=== PATIENT | female | born 1980 | race Caucasian/White ===

== ENCOUNTER 2021-11-10 05:36 | Outpatient (CLI) | payer BC ==
[~2021-11-10] VITALS: Ht 157 cm; Wt 91.0 kg
[2021-11-10] MEDS ORDERED: CITA40TA13 PO (12:07)
[2021-11-10] MEDS ORDERED: BIRTH CONTROL PILL (12:07)
== END 2021-11-10 12:47 | disposition home or self-care (01) ==
LOC: PREOP 05:36
PROVIDERS: ATTEND Otolaryngology Otolaryngology/Facial Plastic Surgery
DX: Z01.818 Encounter for other preprocedural examination (principal)

== ENCOUNTER 2021-11-17 08:56 | Day surgery (SDC) | payer BC ==
[2021-11-17] VITALS (12 sets, daily range): BP systolic 110–124; BP diastolic 63–89
[~2021-11-17] VITALS: Ht 157 cm; Wt 91.0 kg
[~2021-11-17 08:56] MED LIST: AMPICILLIN/SULBACTAM INJECTION 1.5 GM in NS (IVPB) 100 ML IV ONE; BIRTH CONTROL PILL; CITA40TA13 PO; HYDROCORTISONE 100 MG/2 ML (Solu-CORTEF) VIAL IV ONE; LACTATED RINGERS 1,000 ML IV PRN
--- OUTSIDE RECORDS SUMMARY | 2021-11-17 09:00 | XMS REPORT | Continuity of Care Document ---
Author Author [facility] Organization [facility] Address Unknown Phone Unavailable Care Team Providers Care Coil Rewind Machine Operator Name Role Phone Siddhartha Yung PCP Encounter 10/20/21 - 10/20/21 [facility] [address], [address] [place], [place] [address] Encounter Diagnosis Chronic sinus infection (Discharge Diagnosis) - 10/20/21 Discharge Disposition: Home or Self Care Attending Physician: Siddhartha Yung HOT MILL ROLLER Admitting Physician: Siddhartha Yung APRN Allergies, Adverse Reactions, Alerts No Known Medication Allergies Assessment and Plan Extracted from: Title: Office Visit Note Author: Siddhartha Yung APRN Date: 10/20/21 1.Chronic sinus infectionJ 32.9 Ordered: clindamycin, 1 cap(s), Oral, q8hr (interval), X 10 day(s), # 30 cap(s), 0 Refill(s), 10/30/21 11:06:00 TOXICS PROGRAM OFFICER, Pharmacy: [facility] fluconazole, 1 tab(s), Oral, Once, # 2 tab(s), 0 Refill(s), Pharmacy: [facility] pseudoephedrine, 1 tab(s), Oral, q12hr (interval), PRN for cold symptoms, X 10 day(s), # 20 tab(s), 0 Refill(s), 10/30/21 11:05:00 TOXICS PROGRAM OFFICER, Pharmacy: [facility] [id number] Office visit for the E/M of an established pt low or 20-29 min External Referral Referral Ambulatory Hold on to antibiotics and see if patient improves with adding sudafed to plan of care. Continue allergy med and flonase. as needed Future Appointments Appointment Date: 10/28/2021 09:45:00 AM Scheduled Provider: Bruno Luo MD Location: [facility] Appointment Type: [facility] ([facility]) Referrals to Other Providers Referred by: Siddhartha Yung HOT MILL ROLLER Functional Status 10/20/21 COVID-19 Screening None Immunizations No data available for this section Medications citalopram 40 mg oral tablet 1 tab(s), Oral, Daily, # 90 tab(s), 3 Refill(s), Pharmacy: [id number], [facility] Start Date: 04/23/21 Stop Date: 04/18/22 Status: Ordered clindamycin 300 mg oral capsule 1 cap(s), Oral, q8hr (interval), X 10 day(s), # 30 cap(s), 0 Refill(s), 10/30/21 11:06:00 TOXICS PROGRAM OFFICER, [facility]: [facility] Start Date: 10/20/21 Stop Date: 10/30/21 Status: Ordered Diflucan 150 mg oral tablet 1 tab(s), Oral, Once, # 2 tab(s), 0 Refill(s), [facility]acy: [facility] Start Date: 10/20/21 Status: Ordered Low-Ogestrel 0.3 mg-30 mcg oral tablet 0 Refill(s) Start Date: 04/23/21 Status: Ordered phentermine 37.5 mg oral tablet 1 tab(s), Oral, Daily, X 30 day(s), # 30 tab(s), 0 Refill(s), 10/21/21 15:46:00 TOXICS PROGRAM OFFICER, [facility]: [facility] Start Date: 09/21/21 Stop Date: 10/21/21 Status: Ordered predniSONE 20 mg oral tablet See Instructions, 4 tabs today, then 2 tabs daily x 6 days, # 16 tab(s), 0 Refil l(s), 10/21/21 12:00:00 TOXICS PROGRAM OFFICER, [facility]acy: [facility] Start Date: 09/21/21 Stop Date: 10/21/21 Status: Ordered Sudafed 12-Hour 120 mg oral tablet, extended release 1 tab(s), Oral, q12hr (interval), PRN for cold symptoms, X 10 day(s), # 20 tab(s ), 0 Refill(s), 10/30/21 11:05:00 TOXICS PROGRAM OFFICER, [facility]acy: [facility] Start Date: 10/20/21 Stop Date: 10/30/21 Status: Ordered Mental Status No data available for this section Problem List Condition Effective Dates Status Health Status Informan t Hormone replacement Active therapy(Confirmed) Gastro-esophageal Active reflux(Confirmed) Depression with Active anxiety(Confirmed) Obesity(Confirmed) Active Procedures No data available for this section Results No data available for this section Vital Signs Most recent to 1 oldest [Reference Range]: Temperature Temporal 36.7 DegC Artery [36.3-37.8 (10/20/21 10:42 AM) DegC] Peripheral Pulse 85 bpm Rate [60-100 bpm] (10/20/21 10:42 AM) Blood Pressure 122/90 mmHg [90-140/60-90 mmHg] (10/20/21 10:42 AM) BP Site Left arm (10/20/21 10:42 AM) SpO2 [92-100 %] 97 % (10/20/21 10:42 AM) Weight lbs 203.72 lb (10/20/21 10:42 AM) BSA Measured 2 m2 (10/20/21 10:42 AM) Body Mass Index 38.05 kg/m2 (10/20/21 10:42 AM) Height 156 cm (10/20/21 10:42 AM) Height/Length 61 in Measured (inches) (10/20/21 10:42 AM) Weight 92.6 kg (10/20/21 10:42 AM) Social History Social History Type Response Smoking Status Never (less than 100 in lif etime) entered on: 10/20/21 Sex Health Concerns No data available for this section Implantable Device List No data available for this section Hospital Discharge Instructions No data available for this section Goals No data available for this section Reason for Referral Referred by: Siddhartha Yung HOT MILL ROLLER Hospital Course No data available for this section"
--- OUTSIDE RECORDS SUMMARY | 2021-11-17 09:00 | XMS REPORT | Continuity of Care Document ---
Author Author [facility] Organization [facility] Address Unknown Phone Unavailable Care Team Providers Care Manager University Name Role Phone Siddhartha Yung PCP Encounter 09/21/21 - 09/21/21 [facility] [address], [address] [place], [place] [address] Encounter Diagnosis Obesity (Discharge Diagnosis) - 09/21/21 Acute bronchitis (Discharge Diagnosis) - 09/21/21 Discharge Disposition: Home or Self Care Attending Physician: Siddhartha Yung APRN Admitting Physician: Siddhartha Yung DIE SINKING MACHINE OPERATOR Allergies, Adverse Reactions, Alerts No Known Medication Allergies Assessment and Plan Extracted from: Title: Office Visit Note Author: Siddhartha Yung APRN Date: 09/21/21 1.Acute [id number] Ordered: doxycycline, 1 cap(s), Oral, BID, X 10 day(s), # 20 cap(s), 0 Refill(s), 10/01/21 15:46:00 JOB SETTER HONING, Pharmacy: [facility], [facility] predniSONE, See Instructions, 4 tabs today, then 2 tabs daily x 6 days, # 16 tab(s), 0 Refill(s), 10/21/21 12:00:00 JOB SETTER HONING, Pharmacy: [facility] [id number] Office visit for the E/M of an established pt low or 20-29 min [id number] Ordered: phentermine, 1 tab(s), Oral, Daily, X 30 day(s), # 30 tab(s), 0 Refill(s), 10/21/21 15:46:00 JOB SETTER HONING, Pharmacy: [facility], [facility] Orders: COVID-19 SARS Ag covid negative, continue plan of care as discussed. 1 month for phentermine FU Future Appointments Appointment Date: 10/28/2021 09:45:00 AM Scheduled Provider: Bruno Luo MD Location: [facility] Appointment Type: [facility] ([facility]) Functional Status 09/21/21 COVID-19 Screening None Immunizations No data available for this section Medications citalopram 40 mg oral tablet 1 tab(s), Oral, Daily, # 90 tab(s), 3 Refill(s), Pharmacy: [facility], [facility] Start Date: 04/23/21 Stop Date: 04/18/22 Status: Ordered doxycycline hyclate 100 mg oral capsule 1 cap(s), Oral, BID, X 10 day(s), # 20 cap(s), 0 Refill(s), 10/01/21 15:46:00 CS T, Pharmacy: [facility], [facility] Start Date: 09/21/21 Stop Date: 10/01/21 Status: Ordered Low-Ogestrel 0.3 mg-30 mcg oral tablet 0 Refill(s) Start Date: 04/23/21 Status: Ordered phentermine 37.5 mg oral tablet 1 tab(s), Oral, Daily, X 30 day(s), # 30 tab(s), 0 Refill(s), 10/21/21 15:46:00 JOB SETTER HONING, Pharmacy: [facility], [facility] Start Date: 09/21/21 Stop Date: 10/21/21 Status: Ordered predniSONE 20 mg oral tablet See Instructions, 4 tabs today, then 2 tabs daily x 6 days, # 16 tab(s), 0 Refil l(s), 10/21/21 12:00:00 JOB SETTER HONING, Pharmacy: [facility], [facility] Start Date: 09/21/21 Stop Date: 10/21/21 Status: Ordered Mental Status No data available for this section Problem List Condition Effective Dates Status Health Status Informan t Hormone replacement Active therapy(Confirmed) Gastro-esophageal Active reflux(Confirmed) Depression with Active anxiety(Confirmed) Obesity(Confirmed) Active Procedures No data available for this section Results No data available for this section Vital Signs Most recent to 1 oldest [Reference Range]: Temperature Temporal 36.7 DegC Artery [36.3-37.8 (09/21/21 2:58 PM) DegC] Peripheral Pulse 82 bpm Rate [60-100 bpm] (09/21/21 2:58 PM) Blood Pressure 120/97 mmHg [90-140/60-90 mmHg] (09/21/21 2:58 PM) BP Site Left arm (09/21/21 2:58 PM) SpO2 [92-100 %] 98 % (09/21/21 2:58 PM) Weight lbs 203.28 lb (09/21/21 2:58 PM) BSA Measured 2 m2 (09/21/21 2:58 PM) Body Mass Index 37.97 kg/m2 (09/21/21 2:58 PM) Height 156 cm (09/21/21 2:58 PM) Height/Length 61 in Measured (inches) (09/21/21 2:58 PM) Weight 92.40 kg (09/21/21 2:58 PM) Social History Social History Type Response Smoking Status Never (less than 100 in lif etime) entered on: 09/21/21 Sex Health Concerns No data available for this section Implantable Device List No data available for this section Hospital Discharge Instructions No data available for this section Goals No data available for this section Reason for Referral No data available for this section Hospital Course No data available for this section
--- OUTSIDE RECORDS SUMMARY | 2021-11-17 09:00 | XMS REPORT | Continuity of Care Document ---
Author Author [facility] Organization [facility] Address Unknown Phone Unavailable Care Team Providers Care Political Theory Professor Name Role Phone Siddhartha Yung PCP Encounter 10/28/21 - 10/28/21 [facility] [address] [place] [address]- Encounter Diagnosis Hormone replacement therapy (HRT) (Discharge Diagnosis) - 10/28/21 Discharge Disposition: Home or Self Care Attending Physician: Bruno Luo MD Admitting Physician: Bruno Luo MD Allergies, Adverse Reactions, Alerts No Known Medication Allergies Assessment and Plan Extracted from: Title: Supplements Author: Latricia Chandra LRT (R) Date: 10/28/21 Patient purchased DIM and ADK10 today. Future Appointments Appointment Date: 01/27/2022 09:15:00 AM Scheduled Provider: Bruno Luo MD Location: [facility] Appointment Type: [facility] ([facility]) Functional Status 10/28/21 Recent Travel History No recent travel Family Member Travel No recent travel History COVID-19 Screening None Immunizations No data available for this section Medications citalopram 40 mg oral tablet 1 tab(s), Oral, Daily, # 90 tab(s), 3 Refill(s), Pharmacy: [facility], [facility] Start Date: 04/23/21 Stop Date: 04/18/22 Status: Ordered clindamycin 300 mg oral capsule 1 cap(s), Oral, q8hr (interval), X 10 day(s), # 30 cap(s), 0 Refill(s), 10/30/21 11:06:00 PSYCHIATRIC CLINICAL NURSE SPECIALIST, Pharmacy: [facility], [facility] Start Date: 10/20/21 Stop Date: 10/30/21 Status: Ordered Diflucan 150 mg oral tablet 1 tab(s), Oral, Once, # 2 tab(s), 0 Refill(s), Pharmacy: [facility], [facility] Start Date: 10/20/21 Status: Ordered Low-Ogestrel 0.3 mg-30 mcg oral tablet 0 Refill(s) Start Date: 04/23/21 Status: Ordered phentermine 37.5 mg oral capsule 1 cap(s), Oral, Daily, 0 Refill(s), Pharmacy [facility] Start Date: 10/28/21 Status: Ordered Sudafed 12-Hour 120 mg oral tablet, extended release 1 tab(s), Oral, q12hr (interval), PRN for cold symptoms, X 10 day(s), # 20 tab(s ), 0 Refill(s), 10/30/21 11:05:00 PSYCHIATRIC CLINICAL NURSE SPECIALIST, Pharmacy: [facility], [facility] Start Date: 10/20/21 Stop [...] to 1 oldest [Reference Range]: Temperature Temporal 36.8 DegC Artery [36.3-37.8 (10/28/21 9:59 AM) DegC] Peripheral Pulse 108 bpm Rate [60-100 bpm] *HI* (10/28/21 9:59 AM) Respiratory Rate 18 br/min [14-20 br/min] (10/28/21 9:59 AM) Blood Pressure 126/82 mmHg [90-140/60-90 mmHg] (10/28/21 9:59 AM) BP Site Left arm (10/28/21 9:59 AM) SpO2 [92-100 %] 98 % (10/28/21 9:59 AM) Oxygen Therapy Room air (10/28/21 9:59 AM) Weight lbs 202.576 lb (10/28/21 9:59 AM) BSA Measured 2 m2 (10/28/21 9:59 AM) Body Mass Index 37.84 kg/m2 (10/28/21 9:59 AM) Height 156 cm (10/28/21 9:59 AM) Height/Length 61 in Measured (inches) (10/28/21 9:59 AM) Weight 92.08 kg (10/28/21 9:59 AM) Social History Social History Type Response Smoking Status Never (less than 100 in lif etime) entered on: 10/28/21 Sex Health Concerns No data available for this section Implantable Device List No data available for this section Hospital Discharge Instructions No data available for this section Goals No data available for this section Reason for Referral No data available for this section Hospital Course No data available for this section
--- OUTSIDE RECORDS SUMMARY | 2021-11-17 09:00 | XMS REPORT | Continuity of Care Document ---
Author Author [facility] Organization [facility] Address Unknown Phone Unavailable Care Team Providers Care Rubber Goods Inspector Tester Name Role Phone Siddhartha Yung PCP Encounter 10/27/21 - 10/27/21 [facility] [address] [place] [address]- Discharge Disposition: Home or Self Care Attending Physician: Stephen Hameed MD Admitting Physician: Stephen Hameed MD Allergies, Adverse Reactions, Alerts No Known Medication Allergies Assessment and Plan Future Appointments Appointment Date: 10/28/2021 09:45:00 AM Scheduled Provider: Bruno Luo MD Location: [facility] Appointment Type: [facility] Functional Status No data available for this section Immunizations No data available for this section Medications citalopram 40 mg oral tablet 1 tab(s), Oral, Daily, # 90 tab(s), 3 Refill(s), Pharmacy: [facility], [facility] Start Date: 04/23/21 Stop Date: 04/18/22 Status: Ordered clindamycin 300 mg oral capsule 1 cap(s), Oral, q8hr (interval), X 10 day(s), # 30 cap(s), 0 Refill(s), 10/30/21 11:06:00 INFANT CAREGIVER, Pharmacy: [facility], [facility] Start Date: 10/20/21 Stop Date: 10/30/21 Status: Ordered Diflucan 150 mg oral tablet 1 tab(s), Oral, Once, # 2 tab(s), 0 Refill(s), Pharmacy: [facility], [facility] Start Date: 10/20/21 Status: Ordered Low-Ogestrel 0.3 mg-30 mcg oral tablet 0 Refill(s) Start Date: 04/23/21 Status: Ordered Sudafed 12-Hour 120 mg oral tablet, extended release 1 tab(s), Oral, q12hr (interval), PRN for cold symptoms, X 10 day(s), # 20 tab(s ), 0 Refill(s), 10/30/21 11:05:00 INFANT CAREGIVER, Pharmacy: [facility], [facility] Start Date: 10/20/21 Stop Date: 10/30/21 Status: Ordered Mental Status No data available for this section Problem List Condition Effective Dates Status Health Status Informan t Hormone replacement Active therapy(Confirmed) Gastro-esophageal Active reflux(Confirmed) Depression with Active anxiety(Confirmed) Obesity(Confirmed) Active Procedures No data available for this section Results Radiology Reports * Exam Date Time Procedure Performing Provider Status 10/27/21 9:[address] Sinus w/o Contrast Diane Galvez LRT (R); Auth (Verified) Notes: (CT Sinus w/o Contrast) Reason For Exam: CHRONIC SINUSITIS REPORT Patient: BRIDGETT AGOSTO Time Out: 17:47 Exam(s): CT SINUSES Exam: CT SINUS WITHOUT CONTRAST CLINICAL INDICATION: Patient with chronic sinusitis x 3 months. TECHNIQUE: Axial CT scan of the sinuses performed without IV contrast with sagittal and coronal reformatted images. COMPARISON: None. FINDINGS: Frontal sinuses are clear. Ethmoid sinuses are clear. Sphenoid sinuses are clear. There is a moderate to large size area of mucous retention cyst/thickening seen in the right maxillary sinus predominantly on the floor. The right infundibulum and right ostiomeatal unit region is patent. There is minimal mucosal thickening on the floor of the left maxillary sinus. The left ostiomeatal unit region and infundibulum are patent. There is note of paradoxical curvature of both middle nasal turbinates. There is roughly 3 mm of leftward nasal septal deviation. Orbits and globes are unremarkable. Extracranial soft tissues are unremarkable. IMPRESSION: 1. There is moderate to large amount of sinus disease involving the right maxillary sinus. 2. There is minimal mucosal thickening involving the left maxillary sinus. 3. The remainder of the paranasal sinuses are clear. 4. There is mild leftward nasal septal deviation. All CT scans use one or more of the following dose optimizing techniques: automated exposure control, mA and/or KvP adjustment based on patient size and exam type or iterative reconstruction. at 1747 Vital Signs No data available for this section Social History Social History Type Response Smoking [...]
--- OUTSIDE RECORDS SUMMARY | 2021-11-17 09:00 | XMS REPORT | Continuity of Care Document ---
Author Author [facility] Organization [facility] Address Unknown Phone Unavailable Care Team Providers Care Lab Asst Name Role Phone Siddhartha Yung PCP Encounter 09/21/21 - 09/21/21 [facility] [address] [place] [address]- Discharge Disposition: Home or Self Care Attending Physician: Siddhartha Yung APRN Admitting Physician: Siddhartha Yung APRN Allergies, Adverse Reactions, Alerts No Known Medication Allergies Assessment and Plan Future Appointments Appointment Date: 10/28/2021 09:45:00 AM Scheduled Provider: Bruno Luo MD Location: [facility] Appointment Type: [facility] Functional Status No data available for this section Immunizations No data available for this section Medications citalopram 40 mg oral tablet 1 tab(s), Oral, Daily, # 90 tab(s), 3 Refill(s), Pharmacy: [facility], [facility] Start Date: 04/23/21 Stop Date: 04/18/22 Status: Ordered doxycycline hyclate 100 mg oral capsule 1 cap(s), Oral, BID, X 10 day(s), # 20 cap(s), 0 Refill(s), 10/01/21 15:46:00 CS T, Pharmacy: [facility] Start Date: 09/21/21 Stop Date: 10/01/21 Status: Ordered Low-Ogestrel 0.3 mg-30 mcg oral tablet 0 Refill(s) Start Date: 04/23/21 Status: Ordered phentermine 37.5 mg oral tablet 1 tab(s), Oral, Daily, X 30 day(s), # 30 tab(s), 0 Refill(s), 10/21/21 15:46:00 ROOMING HOUSE INSPECTOR, Pharmacy: [facility], [facility] Start Date: 09/21/21 Stop Date: 10/21/21 Status: Ordered predniSONE 20 mg oral tablet See Instructions, 4 tabs today, then 2 tabs daily x 6 days, # 16 tab(s), 0 Refil l(s), 10/21/21 12:00:00 ROOMING HOUSE INSPECTOR, Pharmacy: [facility], [facility] Start Date: 09/21/21 Stop Date: 10/21/21 Status: Ordered Mental Status No data available for this section Problem List Condition Effective Dates Status Health Status Informan t Hormone replacement Active therapy(Confirmed) Gastro-esophageal Active reflux(Confirmed) Depression with Active anxiety(Confirmed) Obesity(Confirmed) Active Procedures No data available for this section Results Laboratory List Name Date COVID-19 SARS Ag 09/21/21 Most recent to 1 oldest [Reference Range]: COVID-19 SARS Ag Negative [Negative] (09/21/21 3:45 PM) In ICU? No (09/21/21 3:45 PM) status? Not (09/21/21 3:45 PM) Hospitalized due to No COVID-19? (09/21/21 3:45 PM) Date of Onset 07-SEP-2021 (REQUIRED if *Unknown* Symptomatic) (09/21/21 3:45 PM) Group care resident? No (09/21/21 3:45 PM) Employed in No Healthcare? (09/21/21 3:45 PM) Symptomatic as Yes defined by CDC? (09/21/21 3:45 PM) Vital Signs No data available for this [...]
[2021-11-17 09:30] LABS: BASOPHILS # (AUTO) 0.1 10^3/uL (0.0-0.1); BASOPHILS % (AUTO) 1 % (0-10); EOSINOPHILS # (AUTO) 0.1 10^3/uL (0.0-0.3); EOSINOPHILS % (AUTO) 1 % (0-10); HEMATOCRIT 41 % (35-52); HEMOGLOBIN 13.8 g/dL (11.5-16.0); LYMPHOCYTES # (AUTO) 3.7 10^3/uL (1.0-4.0); LYMPHOCYTES % (AUTO) 35 % (12-44); MEAN CORPUSCULAR HEMOGLOBIN 30 pg (25-34); MEAN CORPUSCULAR HGB CONC 33 g/dL (32-36); MEAN CORPUSCULAR VOLUME 90 fL (80-99); MEAN PLATELET VOLUME 12.1 fL (9.0-12.2); MONOCYTES # (AUTO) 0.8 10^3/uL (0.0-1.0); MONOCYTES % (AUTO) 8 % (0-12); NEUTROPHILS % (AUTO) 56 % (42-75); PLATELET COUNT 223 10^3/uL (130-400); WHITE BLOOD COUNT 10.8 10^3/uL (4.3-11.0)
[2021-11-17 09:53] LABS: CALCIUM 8.9 MG/DL (8.5-10.1); CREATININE SERUM 0.68 MG/DL (0.60-1.30); POTASSIUM 3.7 MMOL/L (3.6-5.0)
[2021-11-17] MEDS ORDERED: FAMOTIDINE 20MG/2ML IV (PEPCID) IV ONE (10:00)
[2021-11-17] MEDS ORDERED: ONDANSETRON 4 MG/2 ML (SDV) Z0FRAN IV ONE (10:00)
[2021-11-17] MEDS ORDERED: BSS 15 ML ONE (11:03)
[2021-11-17] MEDS ORDERED: PHENYLEPHRINE 0.5% NASAL SPR (NEO-SYNEPHRINE) REG ONE (11:03)
[2021-11-17] MEDS ORDERED: COCAINE HCL 4% 2 ML SYR ONE (11:03)
[2021-11-17] MEDS ORDERED: LIDOCAINE/EPI 1%-1:200,000 (XYLOCAINE) 30 ML VIAL ONE (11:03)
--- NOTE | 2021-11-17 11:08 | Progress Note-Pre Operative ---
Pre-Operative Progress Note H&P Reviewed The H&P was reviewed, patient examined and no changes noted. Date Seen by Provider: Nov 17, 2021 Time Seen by Provider: 11:00 Date H&P Reviewed: Nov 17, 2021 Time H&P Reviewed: 11:00 Pre-Operative Diagnosis: bILAT cHRONIC Sinusitis, Bialt Hyper of INf Turbs, deviated septum MICHELLE CORNELL MD Nov 17, 2021 11:08
[2021-11-17] MEDS ORDERED: ROCURONIUM 10 MG/ML 5 ML SYRINGE IV ONE (11:09)
[2021-11-17] MEDS ORDERED: MIDAZOLAM 2 MG/2 ML (VERSED) VIAL ONE (11:09)
[2021-11-17] MEDS ORDERED: fentaNYL INJ 100 MCG/2 ML AMP ONE (11:09)
[2021-11-17] MEDS ORDERED: LIDOCAINE PF 2% 5 ML (XYLOCAINE) VIAL ONE (11:09)
[2021-11-17] MEDS ORDERED: proPOfol 200 MG/20 ML (DIPRIVAN) VIAL IV ONE (11:09)
[2021-11-17] MEDS ORDERED: ONDANSETRON 4 MG/2 ML (SDV) Z0FRAN ONE (11:09)
[2021-11-17] MEDS ORDERED: GLYCOPYRROLATE 0.2 MG/ML (ROBINUL) 2 ML VIAL ONE (12:30)
[2021-11-17] MEDS ORDERED: NEOSTIGMINE 3 MG/3 ML VIAL ONE (12:30)
[2021-11-17] MEDS ORDERED: SEVOFLURANE (ULTANE) 15 ML INHAL SOLN ONE (12:38)
--- NOTE | 2021-11-17 12:51 | Progress Note-Post Operative ---
Post-Operative Progess Note Surgeon (s)/Enamel Burner (s) Surgeon MICHELLE CORNELL MD Enamel Burner n/a Pre-Operative Diagnosis bILAT cHRONIC Sinusitis, Bialt Hyper of INf Turbs, deviated septum Post-Operative Diagnosis same Post-Op Procedure Note Date of Procedure: Nov 17, 2021 Name of Procedure Performed: Bilat ESS, NaSAL Septoplasty, Bilat REd of Inf Turbs Description & Findings Description and Findings: n/a Anesthesia Type get Estimated Blood Loss minimal Packing dnp bilat Specimen(s) collected/removed bilat chronic sinus disease MICHELLE CORNELL MD Nov 17, 2021 12:51
[2021-11-17] MEDS ORDERED: ONDANSETRON 4 MG/2 ML (SDV) Z0FRAN IVP PRN (13:00)
[2021-11-17] MEDS ORDERED: HYDROcodone/APAP 5 MG/325 MG (LORTAB) TAB PO PRN (13:00)
[2021-11-17] MEDS ORDERED: MEPERIDINE (DEMEROL) INJ 50 MG/ML IVP ONE (13:00)
[2021-11-17] MEDS ORDERED: morphine INJ 10 MG/ML 1ML (SYR OR VIAL) IVP ONE (13:00)
[2021-11-17] MEDS ORDERED: predniSONE 20 MG TAB PO ONE (13:00)
[2021-11-17] MEDS ORDERED: HYDROmorphone 2 MG/ML VIAL (DILAUDID) IV ONE (13:00)
[2021-11-17] MEDS ORDERED: D5 1/2 NS W/KCL 20 MEQ/L 1,000 ML IV SCH (13:00)
[2021-11-17] MEDS ORDERED: PROMETHAZINE INJ 25 MG/ML (PHENERGAN) AMP IVP PRN (13:00)
[2021-11-17] MEDS ORDERED: PRD20T PO (13:51)
[2021-11-17] MEDS ORDERED: AMOX-355 PO (13:51)
[2021-11-17] MEDS ORDERED: ACHD5005 PO (13:51)
--- NOTE | 2021-11-17 14:18 | Anesthesia-General Post-Op ---
General Patient Condition Mental Status/LOC: Same as Preop Cardiovascular: Satisfactory Nausea/Vomiting: Absent Respiratory: Satisfactory Pain: Controlled Complications: Absent Post Op Complications Complications None Follow Up Care/Instructions Patient Instructions None needed. Anesthesia/Patient Condition Patient Condition Patient is doing well, no complaints, stable vital signs, no apparent adverse anesthesia problems. No complications reported per nursing. YANG MEEKS CRNA Nov 17, 2021 14:18
== END 2021-11-17 14:58 | disposition home or self-care (01) ==
LOC: SDC 08:56
PROVIDERS: ATTEND Otolaryngology Otolaryngology/Facial Plastic Surgery
DX: J32.9 Chronic sinusitis, unspecified (principal); J34.2 Deviated nasal septum; J34.89 Other specified disorders of nose and nasal sinuses; J34.3 Hypertrophy of nasal turbinates; R09.81 Nasal congestion; F32.A Depression, unspecified; Z79.899 Other long term (current) drug therapy
CPT/HCPCS: 36415; 80048; 84703; 85025; 87081; 87636